=== PATIENT | female | born 1955 | race Caucasian/White ===

== ENCOUNTER 2023-12-31 23:47 | Inpatient (IN) | payer MEDICARE, OTHER, SELFPAY ==
[2023-12-31 21:31] VITALS: BP 129/91
[2023-12-31 21:39] VITALS: BMI 13.2
[2023-12-31 21:40] VITALS: PULSE 2
[2023-12-31 21:54] LABS: % Basophils 0.6 % (0-2); % Eosinophils 2.3 % (0-6); % Immature Granulocytes 0.4 % (0-0.5); % Lymphocytes 10.8 % (20.5-51.1); % Monocytes 6.6 % (1.7-9.3); % Neutrophils 79.3 % (42.2-75.2); Absolute Basophils 0.1 10^3/uL (0-0.2); Absolute Eosinophils 0.3 10^3/uL (0-0.7); Absolute Immature Granulocytes 0.1 10^3/uL (0-0.05); Absolute Lymphocytes 1.5 10^3/uL (1.2-3.4); Absolute Monocytes 0.9 10^3/uL (0.1-0.6); Absolute Neutrophils 11.1 10^3/uL (1.4-6.5); Hematocrit 46.5 % (37.0-47.0); Hemoglobin 14.1 g/dL (12.0-16.0); Mean Corp Hgb Conc. 30.3 g/dL (33.0-37.0); Mean Corpuscular Hgb 28.3 pg (27.0-31.0); Mean Corpuscular Volume 93.4 fL (81.0-99.0); Mean Platelet Volume 9.5 fL (7.4-10.4); Nucleated Red Blood Cells % 0 %; Platelet Count 409 10^3/uL (130-400); Red Blood Cell Count 4.98 10^6/uL (4.20-5.40); Red Cell Dist. Width 12.7 % (11.5-14.5)
[2023-12-31 21:55] LABS: B.E. 14.7 mmol/L; O2 Saturation % 91.6 % (94-98); pH 7.38 (7.35-7.45)
[2023-12-31 21:58] LABS: HCO3 43.2 mmol/L (21-28); PCO2 73 mmHg (32-35); PO2 59 mmHg (83-108)
[2023-12-31 22:00] VITALS: BP 135/80
[2023-12-31 22:06] LABS: Blood Urea Nitrogen 13 mg/dl (7-17); COVID-19 Antigen Negative (Negative); Calcium 11.3 mg/dl (8.4-10.2); Chloride 90 mmol/L (98-107); Estimated Creatinine Clearance 40 ml/min; Glucose 124 mg/dl (70-99); Sodium 140 mmol/L (135-145); eGFR > 60.00
[2023-12-31 22:08] LABS: Urine Albumin Trace (Neg - Trace); Urine Bilirubin Negative (Negative); Urine Character Clear (Clear); Urine Color Yellow; Urine Glucose Negative (Negative); Urine Ketone Negative (Negative); Urine Leukocyte Trace (Negative); Urine Nitrite Negative (Negative); Urine Occult Blood 4+ (Negative); Urine Specific Gravity 1.015 (<1.030); Urine Urobilinogen 1+ (Neg - 1+)
[2023-12-31 22:09] LABS: Lactic Acid 1.9 mmol/L (0.7-2.0)
--- NOTE | 2023-12-31 22:09 | ED.GENMED ---
History of Present Illness
<FRANDY Mcclelland - Last Filed: 01/01/24 05:13>
General
Chief Complaint: Breathing Problem
Source: patient and records
Exam Limitations: clinical condition
Time Seen by Provider: 12/31/23 22:07
History of Present Illness
History of Present Illness:
68 year old female presents from [facility] for evaluation of a breathing problem. Pt is currently in severe respiratory distress thus history taking is limited during this evaluation. Pt has a history of COPD, and last presented to the ED on
06/13/2023 for acute COPD exacerbation and was subsequently admitted to the hospital. Pt reports 2-3 day history of cough leading up to her presentation. Pt presents tonight with fever of 103.6F and SOB. According to EMS documentation pt did not
receive antipyretic medication while at [facility]. Pt is on 4L home O2 chronically.
Past History
<FRANDY Mcclelland - Last Filed: 01/01/24 05:13>
Past History
ED Past Medical History: Cancer (Breast), COPD, Psychiatric and Other (PNA)
ED Past Surgical History: Gynecological (Left lumpectomy) and Other (Right mastoid removed)
Social History
Tobacco: Former smoker
Alcohol: None
Drug: Other
Personal:
Living: other
Employment: Not employed
Family History
Family History: Other
Review of Systems
<FRANDY Mcclelland - Last Filed: 01/01/24 05:13>
Review of Systems
Allergies reviewed?: Yes
Unable to obtain full review of systems at this time due to: due to acuity
Other source history: ambulance crew
Constitutional: Reports fever
Respiratory: Reports trouble breathing
Phy Exam
<FRANDY Mcclelland - Last Filed: 01/01/24 05:13>
General Physical Exam
General Presentation: severe distress
General age: appears stated age
General Skin: cool
General Habitus: cachetic and elderly
General Mental: anxious
Pulmonary Exam
Pulmonary Exam: no crackles, no rhonchi and decreased breath sounds (upper and lower lobes bilaterally )
Respiratory Effort: tachypnea
Oxygen Status: BiPAP
Respirations: rapid
Scores
<Silvana Lora DO - Last Filed: 12/31/23 23:54>
Heart Failure Risk
Heart Failure Risk Score: Not Applicable
Course
<ST KrystinPA - Last Filed: 01/01/24 05:13>
Orders/Labs/Results
Orders:
Orders
12/31/23 21:36
Electrocardiogram (*1) Urgent
Reason for Study: Other
Other Reason for Exam: Possible Sepsis
Cardiac Monitoring- Treatment ONCE
EKG- Treatment ONCE
IV Insert/Care/Rem.- Treatment PRN
Straight cath- Treatment ONCE
12/31/23 21:42
Basic Metabolic Panel Urgent
COVID-19 Antigen Urgent
Source: Nasal Swab
Complete Blood Count/With Diff Urgent
Lactic Acid Q4H
Comment: ON ICE, CANCEL 2ND ORDER IF FIRST LACTIC ACID LEVEL <2
12/31/23 21:49
ABG [Arterial Blood Gas] Urgent
%Oxygen/Room Air: 10L
12/31/23 22:01
Urinalysis Reflex To Culture Urgent
Date Specimen was Collected: 12/31/23
Time Specimen was Collected: 21:36
Urine Microscopic Reflex Cult Urgent
12/31/23 22:09
Cardiac Monitoring- Treatment ONCE
Straight cath- Treatment ONCE
0.9% Sodium Chloride 1000 ml [Nss] 1,000 ml IV BOLUS
12/31/23 22:24
CR Chest Portable - 1 View Urgent
Comment:
Reason For Exam: sob, fevr
Reason Study Needs to be Portable: Unable to Transport
12/31/23 22:25
Albuterol Sulfate [Ventolin Nebules] 7.5 mg INH R NOW STA
Ipratropium Nebs [Atrovent Nebules] 0.5 mg INH R NOW STA
12/31/23 22:30
Blood Culture Urgent
LUCITA Source: Blood/Venous
Specimen Description:
Acetaminophen 10 mg/ml [Ofirmev] 450 mg Empty Viaflex Container 100 ml [Viaflex Empty Container] 0 ml IV ONCE
12/31/23 23:36
Admit/Transfer Patient As Directed
Co-Sign Provider:
Level of Care: Inpatient admission
Assign to:: IMU- Intermediate Care
Physician / Group: Maurizio
Diagnosis: Sepsis
Reason for Hospitalization: BiPAP, IV abx
Expected length of stay greater than two midnights?: Yes
ELOS- Estimated Length of Stay in days: 3
I certify the patient meets the requirements for IP care: Yes
12/31/23 23:37
Code Status As Directed
Resuscitation Status: Full Code
12/31/23 23:42
Piperacillin/Tazo 2.25 Gram [Zosyn] 2.25 grams in 50 ml IV NOW
12/31/23 23:43
Vancomycin 500 mg/100 ml [Vancocin HCl 500 mg] 100 ml IV NOW
01/01/24 00:57
0.9% Sodium Chloride 1000 ml [Nss] 1,000 ml IV 50 mls/hr
Ipratropium/Albuterol Sulfate [Duoneb] 3 ml INH R Q4HPRN PRN
VANCOMYCIN Pharmacy to Dose [VANCOCIN Pharmacy to Dose] 1 each Pharmacy To Prepare [Call Pharmacy To Prepare] 0 ml IV PER PROTOCOL
01/01/24 00:57
Consult Notification Routine
Specialty to Notify: Pulmonary
PULMONARY CONSULT Routine
Consulting Provider: Kathy Carlson
Was physician already notified: No
Reason for consult: COPD, Acute on Chronic Respiratory Failure
Activity As Directed
Activity Level: Bedrest
I&O [Intake/ Output] As Directed
Frequency: q12h
Vital Signs As Directed
Frequency: Per unit guidelines
Weight As Directed
Frequency: Daily
Bipap [RESP] Routine
Patient to use own unit?: No
Inspiratory Pressure (cm H2O): 10
Expiratory Pressure (cm H2O): 5
Oxygen Therapy [O2 Therapy] [RESP] Routine
Titrate/Wean O2 to maintain O2 sat greater than (%): 90
Pulse Ox/cont/shift [RESP] Routine
Quantity: 1
Speech Therapy Eval & Treat Routine
DX Deep Vein Thrombosis Video Routine
01/01/24 01:10
Arterial Blood Gas Urgent
%Oxygen/Room Air: BiPAP
01/01/24 01:31
Acetaminophen [Tylenol] 500 mg PO Q4HPRN PRN
01/01/24 02:00
Dexamethasone Sod Phosphate [Decadron] 6 mg IV Q12H
01/01/24 04:18
Basic Metabolic Panel IN AM
Complete Blood Count/No Diff IN AM
01/01/24 Breakfast
NPO
Allow oral meds: Yes
Allow clear liquids: Sips of Clears
NPO with Ice Chips: Yes
Piperacillin/Tazo 2.25 Gram [Zosyn] 2.25 grams in 50 ml IV Q6H
01/01/24 08:00
Budesonide [Pulmicort] 0.5 mg INH R BID
Ipratropium/Albuterol Sulfate [Duoneb] 3 ml INH R QID
Valproic Acid Syrup [Depakene] 250 mg PO TID
01/01/24 18:00
Enoxaparin Sodium [Lovenox] 30 mg SC QPM
Abnormal Lab Results
12/31/23 12/31/23 12/31/23
21:42 21:49 22:01
WBC 14.0 H 10^3/uL
(4.8-10.8)
MCHC 30.3 L g/dL
(33.0-37.0)
Plt Count 409 H 10^3/uL
(130-400)
Abs Immat Gran (auto) 0.1 H 10^3/uL
(0-0.05)
Absolute Neuts (auto) 11.1 H 10^3/uL
(1.4-6.5)
Absolute Monos (auto) 0.9 H 10^3/uL
(0.1-0.6)
Neutrophils % 79.3 H %
(42.2-75.2)
Lymphocytes % 10.8 L %
(20.5-51.1)
pCO2 73 H* mmHg
(32-35)
pO2 59 L* mmHg
(83-108)
HCO3 43.2 H* mmol/L
(21-28)
ABG O2 Sat (Measured) 91.6 L %
(94-98)
Chloride 90 L mmol/L
(98-107)
Carbon Dioxide 39 H mmol/L
(22-30)
Glucose 124 H mg/dl
(70-99)
Calcium 11.3 H mg/dl
(8.4-10.2)
Ur Occult Blood Reflex 4+ A
(Negative)
Leukocyte Esterase Rfl Trace A
(Negative)
Urine RBC 3-6 A /HPF
(0-2)
Urine Bacteria (Reflex) Few A
(Negative)
12/31/23 21:42
12/31/23 21:42
Vital Signs
Initial and Last Documented VS:
Initial Vital Signs
Temp Pulse Resp BP Pulse Ox
103.6 F H 116 35 129/91 81
12/31/23 21:31 12/31/23 21:31 12/31/23 21:31 12/31/23 21:31 12/31/23 21:31
Last Documented Vital Signs
Temp Pulse Resp BP Pulse Ox
97.8 F 70 33 80/60 96
01/01/24 03:24 01/01/24 04:15 01/01/24 04:15 01/01/24 04:00 01/01/24 03:45
<Silvana Lora, DO - Last Filed: 12/31/23 23:54>
Orders/Labs/Results
Orders:
Orders
12/31/23 21:36
Electrocardiogram (*1) Urgent
Reason for Study: Other
Other Reason for Exam: Possible Sepsis
Cardiac Monitoring- Treatment ONCE
EKG- Treatment ONCE
IV Insert/Care/Rem.- Treatment PRN
Straight cath- Treatment ONCE
12/31/23 21:42
Basic Metabolic Panel Urgent
COVID-19 Antigen Urgent
Source: Nasal Swab
Complete Blood Count/With Diff Urgent
Lactic Acid Q4H
Comment: ON ICE, CANCEL 2ND ORDER IF FIRST LACTIC ACID LEVEL <2
12/31/23 21:49
ABG [Arterial Blood Gas] Urgent
%Oxygen/Room Air: 10L
12/31/23 22:01
Urinalysis Reflex To Culture Urgent
Date Specimen was Collected: 12/31/23
Time Specimen was Collected: 21:36
Urine Microscopic Reflex Cult Urgent
12/31/23 22:09
Cardiac Monitoring- Treatment ONCE
Straight cath- Treatment ONCE
0.9% Sodium Chloride 1000 ml [Nss] 1,000 ml IV BOLUS
12/31/23 22:24
CR Chest Portable - 1 View Urgent
Comment:
Reason For Exam: sob, fevr
Reason Study Needs to be Portable: Unable to Transport
12/31/23 22:25
Albuterol Sulfate [Ventolin Nebules] 7.5 mg INH R NOW STA
Ipratropium Nebs [Atrovent Nebules] 0.5 mg INH R NOW STA
12/31/23 22:30
Blood Culture Urgent
LUCITA Source: Blood/Venous
Specimen Description:
Acetaminophen 10 mg/ml [Ofirmev] 450 mg Empty Viaflex Container 100 ml [Viaflex Empty Container] 0 ml IV ONCE
12/31/23 23:36
Admit/Transfer Patient As Directed
Co-Sign Provider:
Level of Care: Inpatient admission
Assign to:: IMU- Intermediate Care
Physician / Group: Maurizio
Diagnosis: Sepsis
Reason for Hospitalization: BiPAP, IV abx
Expected length of stay greater than two midnights?: Yes
ELOS- Estimated Length of Stay in days: 3
I certify the patient meets the requirements for IP care: Yes
12/31/23 23:37
Code Status As Directed
Resuscitation Status: Full Code
12/31/23 23:42
Piperacillin/Tazo 2.25 Gram [Zosyn] 2.25 grams in 50 ml IV NOW
12/31/23 23:43
Vancomycin 500 mg/100 ml [Vancocin HCl 500 mg] 100 ml IV NOW
01/01/24 00:57
0.9% Sodium Chloride 1000 ml [Nss] 1,000 ml IV 50 mls/hr
Ipratropium/Albuterol Sulfate [Duoneb] 3 ml INH R Q4HPRN PRN
VANCOMYCIN Pharmacy to Dose [VANCOCIN Pharmacy to Dose] 1 each Pharmacy To Prepare [Call Pharmacy To Prepare] 0 ml IV PER PROTOCOL
01/01/24 00:57
Consult Notification Routine
Specialty to Notify: Pulmonary
PULMONARY CONSULT Routine
Consulting Provider: Robyn, Holly
Was physician already notified: No
Reason for consult: COPD, Acute on Chronic Respiratory Failure
Activity As Directed
Activity Level: Bedrest
I&O [Intake/ Output] As Directed
Frequency: q12h
Vital Signs As Directed
Frequency: Per unit guidelines
Weight As Directed
Frequency: Daily
Bipap [RESP] Routine
Patient to use own unit?: No
Inspiratory Pressure (cm H2O): 10
Expiratory Pressure (cm H2O): 5
Oxygen Therapy [O2 Therapy] [RESP] Routine
Titrate/Wean O2 to maintain O2 sat greater than (%): 90
Pulse Ox/cont/shift [RESP] Routine
Quantity: 1
Speech Therapy Eval & Treat Routine
DX Deep Vein Thrombosis Video Routine
01/01/24 01:10
Arterial Blood Gas Urgent
%Oxygen/Room Air: BiPAP
01/01/24 01:31
Acetaminophen [Tylenol] 500 mg PO Q4HPRN PRN
01/01/24 02:00
Dexamethasone Sod Phosphate [Decadron] 6 mg IV Q12H
01/01/24 04:18
Basic Metabolic Panel IN AM
Complete Blood Count/No Diff IN AM
01/01/24 Breakfast
NPO
Allow oral meds: Yes
Allow clear liquids: Sips of Clears
NPO with Ice Chips: Yes
Piperacillin/Tazo 2.25 Gram [Zosyn] 2.25 grams in 50 ml IV Q6H
01/01/24 08:00
Budesonide [Pulmicort] 0.5 mg INH R BID
Ipratropium/Albuterol Sulfate [Duoneb] 3 ml INH R QID
Valproic Acid Syrup [Depakene] 250 mg PO TID
01/01/24 18:00
Enoxaparin Sodium [Lovenox] 30 mg SC QPM
Abnormal Lab Results
12/31/23 12/31/2312/30/24
21:42 21:49 22:01
WBC 14.0 H 10^3/uL
(4.8-10.8)
MCHC 30.3 L g/dL
(33.0-37.0)
Plt Count 409 H 10^3/uL
(130-400)
Abs Immat Gran (auto) 0.1 H 10^3/uL
(0-0.05)
Absolute Neuts (auto) 11.1 H 10^3/uL
(1.4-6.5)
Absolute Monos (auto) 0.9 H 10^3/uL
(0.1-0.6)
Neutrophils % 79.3 H %
(42.2-75.2)
Lymphocytes % 10.8 L %
(20.5-51.1)
pCO2 73 H* mmHg
(32-35)
pO2 59 L* mmHg
(83-108)
HCO3 43.2 H* mmol/L
(21-28)
ABG O2 Sat (Measured) 91.6 L %
(94-98)
Chloride 90 L mmol/L
(98-107)
Carbon Dioxide 39 H mmol/L
(22-30)
Glucose 124 H mg/dl
(70-99)
Calcium 11.3 H mg/dl
(8.4-10.2)
Ur Occult Blood Reflex 4+ A
(Negative)
Leukocyte Esterase Rfl Trace A
(Negative)
Urine RBC 3-6 A /HPF
(0-2)
Urine Bacteria (Reflex) Few A
(Negative)
12/31/23 21:42
12/31/23 21:42
Vital Signs
Initial and Last Documented VS:
Initial Vital Signs
Temp Pulse Resp BP Pulse Ox
103.6 F H 116 35 129/91 81
07/14/24 21:31 12/31/23 21:31 12/31/23 21:31 12/31/23 21:31 12/31/23 21:31
Last Documented Vital Signs
Temp Pulse Resp BP Pulse Ox
97.8 F 70 33 80/60 96
01/01/24 03:24 01/01/24 04:15 01/01/24 04:15 01/01/24 04:00 01/01/24 03:45
<FRANDY Mcclelland - Last Filed: 01/01/24 05:13>
MDM/Problems Addressed
Differential Diagnosis Includes:
COPD exacerbation, COVID-19, PNA, influenza
<FRANDY Mcclelland - Last Filed: 01/01/24 05:13>
*Critical Care Note
comment:
40 minutes at bed side
<Silvana Lora DO - Last Filed: 12/31/23 23:54>
*Radiology
Radiology exam reviewed: preliminary read by ED provider (Significant hyperinflation consistent with COPD. Moderate interstitial fibrosis. No definitive evidence of infiltrate. No pneumothorax.)
*Pulse Oximetry
Patient hypoxic: yes
*EKG
Interpreted by ED Provider?: Yes
Interpretation: abnormal
Rate: tachycardiac
Rhythm: sinus
[place]: normal axis
Interval: normal interval
QRS Pattern: poor R-wave progression
Ischemia: non-specific ST changes
*Deployment Technician Interpretation
Rate: tachycardiac
Interpretation: abnormal
Rhythm: sinus
*Critical Care Note
Total Time (30-74mins, 75-104mins- exclusive of procedures): 40
comment:
40 minutes at bed side
Critical care statement: A total of 40 minutes of critical care time was provided for this patient. This includes management of unstable vital signs, evaluation of the patient at bedside, reviewing the patient's pertinent medical records, discussion
with consultants, review of old EKGs and review of pertinent medical records. This time with separate from time utilized to perform the aforementioned documented procedures
ED Attending Note
<FRANDY Mcclelland - Last Filed: 01/01/24 05:13>
-
Portions of this chart may have been created with voice recognition software.� Occasional wrong word or��sound alike� substitutions may have occurred due to the inherent limitations of voice recognition software.
<Silvana Lora DO - Last Filed: 12/31/23 23:54>
ED Attending Note
Patient seen and examined by attending physician: Yes
I performed the substantive portion of visit, reviewed & personally made and approve the management plan that is documented in note by myself or KENYETTA.: Yes
ED Attending Note:
This is a 68-year-old woman who has end-stage COPD, chronically O2 dependent at 4 L, she has history of bipolar disease with psychosis, failure to thrive, hospitalized here in May to June 27 for treatment of exacerbation of COPD, inability to
care for herself. [facility] since that hospitalization where she has remained.
She presents from [facility] facility with several day history of cough, increasing shortness of breath, severe tonight with significant hypoxia. Noted to be febrile at the halfway but reportedly refusing Tylenol.
She presents significantly tachypneic, febrile at 103 �F, hypoxic on nonrebreather mask with pulse ox reading in the 80s.
Quickly transition to BiPAP 10/5, thus far tolerating BiPAP. She remains moderately tachypneic but able to speak in short sentences.
There has been no report of vomiting.
No report of other associated symptoms. History is markedly limited due to severe respiratory distress.
Prior records reviewed from previous hospitalization June 2023.
Discharge summary notes patient to enter hospice due to end-stage COPD. However halfway records state patient is full code.
Patient is quite thin and frail. 28.7 kg. A loss of 2 kg compared to previous hospitalization in June.
GENERAL: 68-year-old significantly cachectic ill-appearing woman in moderate to severe respiratory distress, moderately fatigued but answering questions appropriately, answering yes/no questions appropriately.
EYE: pupils equal and reactive. anicteric
NECK: Supple, nontender, no meningismus, no significant adenopathy.
ENT: BiPAP mask in place.
CARDIAC: Regular rhythm, tachycardic. no murmur.
LUNGS: Severe respiratory distress with marked tachypnea, respiratory rate of 40, markedly decreased breath sounds throughout.
ABDOMEN: Cachectic, soft, nondistended, without focal tenderness, normoactive BS.
NEUROLOGICAL: Drowsy, oriented x 3, no focal neuro deficits.
SKIN: Hot to touch and dry, mildly pale in color, skin intact. No rash.
MUSCULOSKELETAL: No C/C/E. peripheral pulses are full and equal b/l. No palpable tenderness.
PSYCH: Mildly drowsy. Cooperative.
Patient presents with acute on chronic respiratory failure. Acutely febrile, concern for healthcare associated pneumonia, concern for aspiration pneumonia, sepsis. Other consideration is UTI.
Pulse ox currently 92% on current BiPAP settings.
ABG shows significant respiratory acidosis with CO2 of 70 however bicarb significantly elevated at 43 and overall pH is normal at 7.38. I suspect the CO2 is 70 is not far off from her baseline which I suspect may be around 50-60.
Due to advanced COPD, chronic hyperinflation/air trapping, our goal is to avoid intubation/placing on a ventilator due to significant risk of barotrauma/air trapping.
Labs are pending. Will check portable chest x-ray.
Will check blood culture, urinalysis with reflex to culture.
Will initiate hour-long nebulizer treatment through the BiPAP
Will initiate IV fluid bolus, IV Tylenol for fever and initiate broad-spectrum antibiotics for coverage of potential healthcare associated pneumonia, gram-negative sepsis.
12/31/2023 2300 PM
Chest x-ray shows marked hyperinflation, no definitive evidence of infiltrate.
Patient overall appearing much more comfortable. Tachypnea has resolved, she is resting comfortably. Pulse ox is now 99%
White blood cell count elevated at 14. Normal BUN and creatinine. CO2 elevated at 39 likely related to chronic CO2 retention. Lactic acid is normal at 1.9. Urinalysis is not consistent with UTI.
COVID antigen is negative.
I have attempted to contact the power of criminal defense attorney, patient's brother, cell phone provided goes directly to a voicemail box that is not set up. I then called his office number, reached the answering service however the brother is not on-call only a
service delivery director.
I have relayed this information to the hospitalist.
Discharge Plan
Departure
Patient Disposition: Admit
Date of Disposition: 12/31/23
Time of Disposition: 23:00
Admit to: IMU
Presentation/result/management discussed w/ accepting MD/DO: Hospitalist
Condition: Serious
Covid-19: Negative COVID-19
Discharge Problem:
Acute on chronic respiratory failure with hypoxia and hypercapnia, COPD with acute exacerbation, SIRS (systemic inflammatory response syndrome), Cachexia, Suspect HCA pneumonia
Interventions
Interventions:
*Risk Screen - Suicide Last Done: 12/31/23 21:46
*General Assessment Last Done: 12/31/23 21:46
*Neglect/Abuse Screening Last Done: 12/31/23 21:46
ED- Fall Risk Assessment Last Done: 01/01/24 00:54
*ED COVID-19 Vaccine History Last Done: 12/31/23 21:46
*Nursing Disposition Last Done: 01/01/24 00:54
ED- Cardiac Assessment Last Done: 12/31/23 21:46
ED- Pulmonary Assessment Last Done: 12/31/23 21:46
Discharge Date and Time
Discharge Date/Time: 01/01/24 00:55
[2023-12-31 22:15] LABS: Urine Mucus Few
[2023-12-31 22:16] LABS: Urine Squamous Cell 0-2 /LPF (Few)
[2023-12-31 22:17] LABS: Urine White Cell 0-2 /HPF (0-5)
[2023-12-31 22:20] LABS: Carbon Dioxide 39 mmol/L (22-30)
[2023-12-31 22:21] LABS: Urine Bacteria Few (Negative); Urine Calcium Oxalate Crystals Present; Urine Hyaline Cast 0-2 /LPF (0-2)
[2023-12-31] MEDS: ATROVENT NEBULES 0.5 MG INH (22:31)
[2023-12-31] MEDS: VENTOLIN NEBULES 7.5 MG INH (22:31)
[2023-12-31] MEDS: NSS 1000 IV (22:37)
[2023-12-31 23:00] VITALS: BP 125/82
[2023-12-31] MEDS: OFIRMEV 45 MG IV (23:05)
--- NOTE | 2023-12-31 23:39 | W.PN.UPDATE ---
Update Note
Progress Note Update
Seen and examined and discussed with physician in detail I am in agreement with plan and management mentioned by physician real estate administrative assistant, independent evaluation made by me
Patient sent from the residential for evaluation of shortness of breath and fever, provide limited information as she was on a BiPAP but admits she feels better and she wanted to sleep, according to the nurses she looks and feels better than
earlier, patient advanced COPD and on 4 L oxygen,
Vital signs reviewed
Physical exam:
General: Awake, alert and on BiPAP, cachectic, looks comfortable when she talks, she talks fast single tachypneic,
HEENT: No active discharge, ecchymosis or bruising, moist lips, tongue and mucous membrane.
Eyes: No discharge or red conjunctiva, no nystagmus, pupils are reactive and equal
Neck:Supple, no JVD no bruit no goiter.
Respiratory: Cachectic, holding upper body in flexion, kyphosis normal AP contour and diameter, normal chest wall movement, normal respiratory effort, no respiratory distress,
Lungs: Diminished air entry bilaterally, bilateral wheezing , no rales or crackles
Heart: S1, S2 regular, normal rate, no added sound.
Gastrointestinal: Positive bowel sounds, soft, nontender, no guarding or rigidity or organomegaly
Musculoskeletal: Kyphotic and cachectic,, no chest wall abnormality or tenderness.
Extremities: No pitting edema, good peripheral pulses, good range of motion
Skin: Warm and dry, no ulceration, normal color.
Workup including labs, imaging, EKG and archive reviewed.
Assessment and plan:
Acute sepsis: So far no clear cause but likely respiratory with white cell count more than 14, temperature 100 degree, heart rate 123,
Blood culture
Covered with broad-spectrum antibiotic as started with Vanco and Zosyn in the ER will continue
Shortness of breath: Likely secondary to COPD exacerbation by early pneumonia or bronchitis, doubt pulmonary embolism, she has no chest pain responded to BiPAP
Continue BiPAP for now
ABG showed normal pH shows she has a chronic hypoxic and hypercarbic failure, will get an ABG in an hour and discussed with the night physician and nurse practitioner who cover the IMU to check an ABG and address the need for the BiPAP accordingly.
DuoNeb
IV steroid
Vital sign closely
Low threshold to transfer to ICU
Advanced COPD: As above.
The rest of the assessment and management as per physician real estate administrative assistant.
ER tried to reach out to the brother who is a spinneret person
Was not in service.
The archive and records from the residential are reviewed, according to the record she is a full code
DVT prophylax
Prognosis is poor
--- NOTE | 2023-12-31 23:44 | HPS.HSE ---
Family Physician
-
Family Physician: Juan Luis Hope
Chief Complaint
-
Respiratory Distress
History of Present Illness
Patient is a 68 y/o female past medical history of bipolar disorder, and end stage COPD on chronic oxygen and steroids who presents with respiratory distress. Patient is currently on BiPAP and was non-verbal during my evaluation. Reviewed with ED
provider who reports patient was sent from local halfway with respiratory distress. Upon arrival she was tachypneic and found to be febrile with temp 103F.
Medical History
Past Medical History
Past Medical History: Reports Other
Additional Past Medical History:
Chronic Hypoxic/Hypercarbic Respiratory Failure
End Stage COPD
Pulmonary Cachexia
Bipolar Disorder with Psychotic Feature
Dysphagia
Left Breast Cancer
Past Surgical History: Reports Other
Additional Past Surgical History:
Left Lumpectomy
Social History
Tobacco: Former Smoker
Living: [facility]
Family History
Family History: Unable to Obtain
Allergies / Home Medications
Allergies reflects when Allergies were last updated in [employer].
Home Medications with original date entered in [employer]
Allergy/Medication List:
Allergies
Allergy/AdvReac Type Severity Reaction Status Date / Time
No Known Allergies Allergy Verified 12/31/23 21:41
Home Medications
tiotropium bromide 18 mcg capsule with inhalation device (Spiriva with HandiHaler) 1 cap inhalation R DAILY Lung/Breathing Issues 04/28/23
prednisone 5 mg tablet 5 mg PO DAILY COPD 06/13/23
albuterol 90 mcg-budesonide 80 mcg/actuation HFA aerosol inhaler 2 inh inhalation Q4HPRN PRN shortness of breath 12/31/23
valproic acid (as sodium salt) 250 mg/5 mL (5 mL) oral solution 250 mg PO TID 12/31/23
Review of Systems
-
Unable to obtain full review of systems at this time due to: Patient Non-verbal
Physical Exam
Vital Signs
Vital Signs
Temp Pulse Resp BP Pulse Ox
103.6 F H 123 28 135/80 82
12/31/23 21:31 12/31/23 22:30 12/31/23 22:30 12/31/23 22:00 12/31/23 22:00
Physical Exam
General: Appears Chronically Ill and Cachectic
HEENT: Anicteric and Oxygen (BiPAP)
Respiratory: Decreased Breath Sounds (Poor inspiratory effort)
Cardiac: S1/S2, Regular Rhythm and Tachycardia
GI: Soft and Non Tender
Rectal: Deferred by Provider
Musculoskeletal: No Clubbing, No Cyanosis and No Edema
Skin: Warm and Dry
Neuro: Other (Opens eyes to name, but non-verbal and not interactive during my evaluation)
Laboratory Results
-
12/31/23 21:42
12/31/23 21:42
Laboratory Results
pH 7.38 (7.35-7.45) 12/31/23 21:49
pCO2 73 mmHg (32-35) H* 12/31/23 21:49
pO2 59 mmHg (83-108) L* 12/31/23 21:49
HCO3 43.2 mmol/L (21-28) H* 12/31/23 21:49
Lactic Acid 1.9 mmol/L (0.7-2.0) 12/31/23 21:42
Total Bilirubin Cancelled 12/31/23 21:42
AST Cancelled 12/31/23 21:42
ALT Cancelled 12/31/23 21:42
Alkaline Phosphatase Cancelled 12/31/23 21:42
Data Reviewed
-
Diagnostic Radiology: Image Personally Visualized and interpreted
Lab Data: Labs Reviewed by me
Impression/Plan
-
Acute on Chronic Hypoxic/Hypercarbic Respiratory Failure
-Consult Pulmonary
-Continue BiPAP
-Recheck ABG later today
Sepsis, likely pulmonary source
-Continue broad spectrum antibiotics with vancomycin and Zosyn
End Stage COPD
-Continue Decadron
-Continue Pulmicort Neb
-Continue Duoneb QID and PRN
Bipolar Disorder with Psychotic Features
-Continue Depakote
Dysphagia
-Per [facility] paperwork patient on Advanced Solids
-Will keep NPO until more awake and seen by Speech
Pulmonary Cachexia / Severe Protein Calorie Malnutrition
-Consult Dietary
Hx Left Breast Cancer s/p Lumpectomy
DVT proph: Lovenox
Code Status: Per [facility] Paperwork patient is FULL CODE. ED provider attempted to call patient's brother (POA) and patient's daughter without response
[2024-01-01] VITALS (51 sets, daily range): BP systolic 72–113; BP diastolic 55–80; PULSE 2–68; BMI 13.5
[2024-01-01] MEDS: ZOSYN 50 IV ×4 (00:13→17:37)
[2024-01-01] MEDS: VANCOCIN HCL 500 MG 100 IV (00:19)
--- NOTE | 2024-01-01 01:02 | PTCARENOTE ---
Addendum entered by Sebastian Carl RN 01/01/24 05:53:
Order for IV Levophed gtt received; initiated and titrating per order. RT at bedside to adjust Bipap setting per BOAT ENGINE MECHANIC. Plan to repeat ABG at 0700.
Addendum entered by Sebastian Carl RN 01/01/24 03:03:
BOAT ENGINE MECHANIC Penelope made aware the result of repeat ABG & hypotension, at bedside to assess. Order for 500mL Bolus received. Bipap remains in place. Pt able to wake up but quickly falls back asleep. Daughter, Keisha Perry, updated by BOAT ENGINE MECHANIC. Per Kavitha,
Sterling (brother) is POA.
Original Note:
Patient arrived to room 3355 on Bipap with RN and RT. Pt lethargic but arousable upon tactile stimuli. Able to state her name and the year. Afebrile. Tele applied showing sinus tachycardia. Hypotension present. IV abx finishing up at this time.
Repeat ABG being drawn now by RT.
Stage one to sacrum. Heels are blanchable red and boggy; floated on pillow. pt cachectic. Purewick placed. Bed alarm set for safety. Call lanier within reach. RN sitting outside closest nurses station.
[2024-01-01 01:15] LABS: B.E. 7.8 mmol/L; HCO3 36.4 mmol/L (21-28); O2 Saturation % 96.8 % (94-98); PO2 76 mmHg (83-108)
[2024-01-01 01:17] LABS: PCO2 74 mmHg (32-35)
[2024-01-01] MEDS: NSS 1000 IV ×2 (01:52→15:26)
[2024-01-01] MEDS: NSS 500 IV (01:53)
[2024-01-01] MEDS: DECADRON 6 MG IV ×2 (01:59→13:01)
--- NOTE | 2024-01-01 02:12 | W.PN.UPDATE ---
Update Note
Progress Note Update
Patient minimally responsive at arrival to floor. Repeat ABG with no significant changes, and hypotension. Call received from patients daughter, Keisha Perry, attempted to update daughter on patients current status. Keisha Perry presents manic on the
phone, talks rapidly without breaks. Keisha Perry repeatedly questions if her Mother is sick from a 'cold,' or the 'flu,' verse 'end-stage.' She quickly requests prognosis and how long patient will leave then changes conversation to question provider
about her own psychiatric diagnosis. Attempts to reorient/refocus daughter were not successful. During long conversation daughter, Keisha Perry mentions that her Uncle, Richard Herrera, is POA for her mother. Keisha Perry provided number to [facility],
company her Uncle owns , additional contact number located from previous admission . Call to office and on-call service answered, left message for Mr. Herrera to return call to hospital as it is believe a patient he is
POA for is here (no detailed patient information, including name was provided). Call to noted contact number form previous admission rang without answer and no voicemail setup.
Plan:
#Hypotension
- NSS IVF bolus (ineffective)
- Levophed gtt initiated to maintain SBP >90
#Acute on Chronic Hypoxic/Hypercarbic Respiratory Failure
- no significant changed is ABG pH 7.3, CO2 74, O2 76
- RT titrating BiPap settings
[2024-01-01 04:32] LABS: Hematocrit 32.8 % (37.0-47.0); Mean Corp Hgb Conc. 31.1 g/dL (33.0-37.0); Mean Corpuscular Hgb 28.3 pg (27.0-31.0); Mean Corpuscular Volume 91.1 fL (81.0-99.0); Mean Platelet Volume 9.9 fL (7.4-10.4); Platelet Count 231 10^3/uL (130-400); Red Cell Dist. Width 12.8 % (11.5-14.5)
[2024-01-01 04:51] LABS: Hemoglobin 10.2 g/dL (12.0-16.0)
[2024-01-01 04:56] LABS: Blood Urea Nitrogen 13 mg/dl (7-17); Calcium 9.3 mg/dl (8.4-10.2); Carbon Dioxide 33 mmol/L (22-30); Chloride 100 mmol/L (98-107); Estimated Creatinine Clearance 34 ml/min; Glucose 134 mg/dl (70-99); Potassium 4.4 mmol/L (3.5-5.1); Sodium 139 mmol/L (135-145); eGFR > 60.00
--- NOTE | 2024-01-01 05:10 | W.PN.UPDATE ---
Update Note
Progress Note Update
The patient was discussed with night PRIMARY CARE MD, covering the IMU
Patient is hypotensive and received 1 liter fluid bolus
Repeat ABG pH 7.3, CO2 74, O2 76
-RT continues to titrate BIPAP overnight,
-will hold of on ETT as this would likely bottom out her blood pressure, continue to titrate BIPAP
-MAP is currently holding at > 65 post fluid bolus and will continue to monitor closely for need for pressors, low threshold to start pressors
-Patient's brother is the patient's POA, and night PRIMARY CARE MD has been trying to reach brother without success so far.
[2024-01-01] MEDS: LEVOPHED 250 IV (05:36)
[2024-01-01] MEDS: PULMICORT 0.5 MG INH ×2 (07:43→19:39)
[2024-01-01] MEDS: DUONEB 3 ML INH ×3 (07:43→19:39)
[2024-01-01 07:47] LABS: B.E. 5.5 mmol/L; HCO3 31.1 mmol/L (21-28); PCO2 49 mmHg (32-35); PO2 93 mmHg (83-108); pH 7.41 (7.35-7.45)
--- NOTE | 2024-01-01 08:01 | PHA.VAN.IN ---
Addendum entered and electronically signed by Estefany Corrales Daryn 01/01/24 11:20:
Laboratory Tests
01/01/24
10:38
Random Vancomycin 5.2
Level drawn ~10.5H after initial dose of 500mg (~9.5H after infusion ended)
Patient with low BMI and unlikely to follow population PK
Give additional 1000mg x1 today given low level
Continue to follow levels as difficult to predict accumulation and clearance
Random 01/01 0600
Original Note:
Assessment
- Assessment
Renal Function: Appears similar to baseline
Concomitant Antimicrobials: piperacillin/tazobactam
Plan
- Plan
Initial / Loading Dose: Vanc 500mg - 12/31 00:19
Maintenance Regimen: dosing by level
Random today (12/31) at 1000 - suspect patient may require additional dosing but due to low TBW will obtain level to confirm (patient unlikely to follow population PK)
Pharmacokinetics Vancomycin I
- -
Patient Age: 68
Patient Sex: Female
Vancomycin Day #: 1
Indication: Pulmonary/Respiratory
Requesting Provider: Janine Ramos
Pertinent Antimicrobial Allergies:
NKDA
Height / Weight:
Height 4 ft 10 in
Actual Weight 29.2 kg
IBW in k.9-45.5
Pertinent Past Medical History: BMI ~13.5, end-stage COPD (home O2, prednisone)
- Vital Signs / Lab Results
Temp Pulse Resp BP Pulse Ox
97.8 F 64 24 97/67 96
01/01/24 03:24 01/01/24 07:50 01/01/24 07:50 01/01/24 06:30 01/01/24 07:50
Lab Results - Hematology
12/31/23 01/01/24
21:42 04:18
WBC 14.0 H 11.0 H
Lab Results - Chemistry
12/31/23 01/01/24
21:42 04:18
BUN 13 13
Creatinine 0.6 0.7
Estimated Creat Clear 40 34
Albumin Cancelled
12/31/23 01/01/24
21:42 01:45
Lactic Acid 1.9 Cancelled
Lab Results - Urine
12/31/23
22:01
Urine Nitrite (Reflex) Negative
Leukocyte Esterase Rfl Trace A
Urine WBC (Reflex) 0-2
Ur Squamous Epith Cells 0-2
Urine Bacteria (Reflex) Few A
--- NOTE | 2024-01-01 09:33 | CON.INTV ---
Consultation
Consultation Request
Date/Time Consultation Requested: 01/01/2024
Date/Time Consultation Performed: 01/01/2024
Requesting Provider: Dr. Markham
Performing Provider: Dr. Magdaleno Preston
Reason for Consultation: Acute exacerbation of COPD/bronchitis
Medical History
-
History of Present Illness:
68-year-old woman with history of bipolar disorder, advanced COPD on chronic oxygen, chronic steroid use presented to the emergency room with respiratory distress. Patient necessitated noninvasive mechanical ventilation due to increased work of
breathing. Unable to provide history on admission.
She was also found to be febrile with leukocytosis.
Patient does have chronic of chronic hypercapnic respiratory failure and pulmonary cachexia.
Patient found to be hypotensive despite IV fluid resuscitation. Required low-dose Levophed.
We were consulted for evaluation of respiratory issues.
Past Medical History
Past Medical History: Other (See assessment and plan section)
Social History
Tobacco: Former Smoker
Alcohol: None
Drug: None
Living: Alf
Family History
Family History: Unable to Obtain
Allergies / Home Medications
Allergies
Allergy/AdvReac Type Severity Reaction Status Date / Time
No Known Allergies Allergy Verified 12/31/23 21:41
Home Medications
�Medication �Instructions �Recorded �Confirmed �Last Taken �Type
tiotropium bromide 18 mcg capsule 1 cap inhalation R DAILY 04/28/23 12/31/23 Unknown History
with inhalation device (Spiriva Lung/Breathing Issues
with HandiHaler)
prednisone 5 mg tablet 5 mg PO DAILY COPD 06/13/23 12/31/23 Unknown History
albuterol 90 mcg-budesonide 80 2 inh inhalation Q4HPRN PRN 12/31/23 12/31/23 Unknown History
mcg/actuation HFA aerosol inhaler shortness of breath
valproic acid (as sodium salt) 250 250 mg PO TID Mental Health/Anxiety 12/31/23 12/31/23 Unknown History
mg/5 mL (5 mL) oral solution
Review of Systems
-
Unable to Obtain full review of systems at this time due to: Acuity
Vitals / Labs / Diagnostic Testing
Vital Signs
Temp Pulse Resp BP Pulse Ox
97.5 F 64 24 97/67 96
01/01/24 07:48 01/01/24 07:50 01/01/24 07:50 01/01/24 06:30 01/01/24 07:50
Lab Data
01/01/24 04:18
01/01/24 04:18
Laboratory Results
12/31/23 01/01/24 01/01/24
21:49 01:10 07:39
pH 7.38 7.30 L 7.41
pCO2 73 H* 74 H* 49 H
pO2 59 L* 76 L 93
HCO3 43.2 H* 36.4 H 31.1 H
O2 Delivery Level
Diagnostic Testing:
Physical Exam
-
HEENT: Normocephalic and Other (Cachectic)
Cardiovascular: S1/S2
Respiratory: Wheeze
GI: Soft and Non Distended
Neurology: Awake and Alert
Skin: Warm
Assessment
-
68-year-old woman who has history of advanced COPD, on 4 L of oxygen supplementation, low-dose prednisone, follows up with Dr. Peoples in the outpatient setting. Has history of bipolar disorder and longterm resident. Admitted on 12/31/2023 with
increased work of breathing/respiratory distress. Found to be acute on chronically hypercapnic. Treated for acute exacerbation of COPD. Also found to be febrile and hypotensive requiring low-dose vasopressors. Pulmonary was consulted for
evaluation of respiratory issues
Acute on chronic hypercapnic and hypoxemic respiratory failure-required noninvasive mechanical ventilation/BiPAP.
AB.3/74/76
Acute exacerbation COPD
Chest x-ray: 01/01/2024-hyperinflation. No evidence for pneumonia
Sepsis : Leukocytosis/fevers
unclear source:
Anemia
Conditions present prior admission:
History of severe COPD
Usually on prednisone 5 mg/tiotropium/oxygen supplementation of 4 L
Oxygen dependent 4L/steroid-dependent
Baseline FEV1 0.47/23% in 2021
Last time seen in our office by Dr. Peoples 10/2021-multiple missed appointments since then. Primary care managing mostly.
Multiple hospital stays at [facility]
Pulm cachexia
Hypercalcemia
Hypertension/hyperlipidemia
Right upper lobe nodule, stable
Osteoporosis
Bipolar disorder/anxiety: acute psychosis event leading to brief ER DH adm early May 2023 and transfer to acute psych facility from 05-20 to . Also adm Apr 2023 for FTT and untreated bipolar disorder with component of paranoia and delusions,
seen by psychiatry but refused psych meds.
Assessment and plan:
Agree with current management for now.
Remains on BiPAP, more alert. Following commands. Still slightly tachypneic.
ABG improved compensated now: 7.41/49/93 on 01/02/2024 at 7:39 AM.
Decreased breath sounds bilaterally, no wheezing.
Hold inhalers while on acute exacerbation.
Continue Pulmicort/DuoNebs [id number]
IV dexamethasone-hold low-dose prednisone while on IV steroids
Continue BiPAP as needed and at bedtime while in the hospital. Unlikely to benefit from long-term noninvasive mechanical ventilation due to poor compliance/bipolar disorder etc.
Will attempt to take a break from BiPAP as ABG has improved.
Avoid sedatives if possible
-
Sepsis: Unclear source
Hypotensive, requiring low-dose Levophed-wean down as able. Currently on 5 mics per minute. Hopefully can wean off.
Status post IV fluid resuscitation. Watch respiratory status closely.
Lactic acid not elevated
Renal function normal
Follow fever curve
Could be pulmonary: ?Acute tracheobronchitis.
Currently on pip-tazo and vancomycin.
UA unremarkable
Negative COVID
MRSA screening pending
Obtain a sputum culture if possible
Obtain blood cultures
-
Bipolar disorder: Management per primary team.
[facility] records reviewed, last time seen in our office for COPD management was October 2021. Multiple missed appointments. She was referred to primary care for further care of her COPD.
She quit smoking 20 years ago, not eligible for lung cancer screening.
-
Monitor blood sugars particularly on IV corticosteroids.
-
Will keep n.p.o. for now-aspiration precaution.
DVT prophylaxis-Lovenox
-
Will follow
-
Currently listed as full code.
Family discussion noted. Prognosis is very poor.
Left a message at patient's brother office number, administrative secretary will reach out to him and give the message. Hopefully can discuss CODE STATUS.
-
If there is escalation of vasopressor requirement may need to be transferred to the ICU and obtain a PICC line.
-
Imaging and testing reviewed:
-
Echocardiogram 01/04/2022: Small left ventricular size, mild LVH. Trace MR.
No significant valvular abnormalities. No significant pulmonary hypertension. Normal RV function.
-
CT chest 05/01/2023: Hyperinflated lungs. Significant heterogeneous emphysema.
Stable pulmonary nodules. Coronary artery calcifications.
-
Chest x-ray 12/31/2023: Reviewed showed hyperinflation without evidence of pneumonia.
[2024-01-01 11:10] LABS: Vancomycin Random 5.2 ug/ml
--- NOTE | 2024-01-01 11:12 | W.PN.UPDATE ---
Update Note
Progress Note Update
I discussed with her son Mr. Herrera over the phone today regarding patient's poor prognosis. He agreed and we have transition to DNR.
He would not want any heroic interventions.
I discussed with him considering palliative care and hospice after discharge or even during the hospital stay if patient deteriorates further. He is willing to consider that.
[2024-01-01] MEDS: VANCOCIN 200 IV (11:41)
[2024-01-01] MEDS: DEPAKENE 250 MG PO ×3 (12:17→20:28)
--- NOTE | 2024-01-01 13:20 | PTOTSP ---
Speech Language Pathology
Pt seen for clinical bedside swallow evaluation. Pt consistently talking in extremely low vocal intensity with decreased intelligibility for this reason. P.O. trials of puree and thin liquids provided. Pt refused cracker, stating it was 'stale.'
Also refused DRIVER RETRAINING INSTRUCTOR putting pieces in applesauce, as she had this would make her 'choke.' Adequate oral phase with puree and thin liquids with no oral residue. No overt signs of aspiration.
Recommend:
(1) IDDSI Level 4 (Puree) and Thin Liquids
(2) Aspiration precautions: sit upright, slow rate, single sips
(3) Meds as tolerated
(4) DRIVER RETRAINING INSTRUCTOR to continue to follow
[2024-01-01] MEDS: DUONEB INH (15:33)
--- NOTE | 2024-01-01 16:36 | W.PN.HOSP.TC ---
Today's Communication/Plan
-
cont abx
f/u cultures
iv steroids
duonebs
Assessment / Plan
Assessment / Plan
Physical Exam
General: Appears Chronically Ill and Cachectic
HEENT: Anicteric and Oxygen (BiPAP)
Respiratory: Decreased Breath Sounds (Poor inspiratory effort)
Cardiac: S1/S2, Regular Rhythm and Tachycardia
GI: Soft and Non Tender
Rectal: Deferred by Provider
Musculoskeletal: No Clubbing, No Cyanosis and No Edema
Skin: Warm and Dry
Acute on Chronic Hypoxic/Hypercarbic Respiratory Failure
-Consult Pulmonary
-off bipap
-Recheck ABG later today
-duonebs prn
-broad spectrum abx
-iv steroids
-bipap naps/night
Septic Shock, likely pulmonary source
-Continue broad spectrum antibiotics with vancomycin and Zosyn
-Off levo this afternoon
-f/u cultures
-maintain map >65
End Stage COPD
-Continue Decadron
-Continue Pulmicort Neb
-Continue Duoneb QID and PRN
-palliative consult
Bipolar Disorder with Psychotic Features
-Continue Depakote
Dysphagia
-Per [facility] paperwork patient on Advanced Solids
-Pureed
Pulmonary Cachexia / Severe Protein Calorie Malnutrition
Hx Left Breast Cancer s/p Lumpectomy
DVT proph: Lovenox
Code Status: DNR; hospice appropriate - cm consulted
Total time spent on today's encounter was 50 minutes which included time spent in counseling the patient/family regarding diagnosis and treatment plan as listed above, goals of care, and symptom management. Case was discussed with nursing staff,
specialists, and care coordinators/case management. All labs and imaging personally reviewed by me. Remainder the time spent in detailed review of previous records, lab data, imaging, and other medical provider documentation.
Anticipated Discharge: > 48 hours
Subjective/Interval History
-
Date of Service: January 01, 2024
Off BiPAP
Objective Data
-
Labs:
Laboratory Results
01/01/24 01/01/24
04:18 07:39
WBC 11.0 H
Hgb 10.2 L D
Hct 32.8 L
Plt Count 231 D
HCO3 31.1 H
Sodium 139
Potassium 4.4
Chloride 100
Carbon Dioxide 33 H
BUN 13
Creatinine 0.7
Glucose 134 H
Calcium 9.3 D
Vital Signs:
Vital Signs
Temp Pulse Resp BP Pulse Ox
97.1 F 81 34 99/71 92
01/01/24 11:10 01/01/24 15:30 01/01/24 15:30 01/01/24 14:30 01/01/24 15:15
I&O
12/31/23 01/01/24 01/02/24
06:59 06:59 06:59
Intake Total 550 / 550
Balance 550 / 550
Review of Systems
-
History Source: Patient
All other systems: Not reviewed unless documented
Data Reviewed
-
Diagnostic Radiology: Image personally visualized and interpreted and Report Reviewed by me
Labs: Labs Reviewed by me
--- NOTE | 2024-01-01 16:58 | PTCARENOTE ---
Addendum entered by Ravi Canchola RN 01/01/24 17:45:
Patient adamantly refused lovenox injection despite education about it's use.
Original Note:
Patient oriented to self and place, talks in such a low volume that she is often unintelligible. Patient rambles continuously, also often paranoid of medications provided. NSR on monitor. Patient has been weaned off of levo gtt since 1400 today.
VSS. Weaned to 2L NC, sats 94%. Patient with a moist cough, productive with ernst sputum. Attempting to get patient to provide a sample for lab. Patient ordered pureed with thins diet after speech eval, patient states very hungry but won't eat the
food, only drank liquids. DNR band placed, LUE limb alert band placed for prior lumpectomy and IV removed from that arm. Brother/POA visited today and updated, daughter Keisha updated by phone. Continuing to closely monitor patient.
--- NOTE | 2024-01-01 17:09 | CM ---
Patient from [facility] with Hx Bipolar Disorder with Psychotic Features with Dx Dx Acute on Chronic Hypoxic/Hypercarbic Respiratory Failure, Septic Shock, end stage COPD. O2 1L. Receiving Decadron IV, IV Abx, IVF. ST Eval; dysphagia diet.
Spoke with [facility]; the patient resides there in LTC on an MA bed hold. She is confused at baseline, is able to ambulate on her own. The patient is not currently receiving PT. The facility has contact with her brother Richard, who
is POA.
Spoke with nurse Ravi; patient off BiPAP and off Levophed today. The patient's brother is asking to speak with CM about palliative care vs hospice---> message to Dr Raymond family may be interested in hospice.
Phone calls to Richard, patient's brother; no answer on cell phone and no voicemail. Called his work # and left message.
Plan follow up with patient's brother for d/c planning.
--- NOTE | 2024-01-01 20:30 | PTCARENOTE ---
Resumed care of pt this evening. Received pt A&Ox1 to self, pt able to move all 4 extremities, and responds to verbal and tactile stimuli. Pt often speaks under her breath and is very difficult to understand. Pt is NSR on tele monitor, has no edema
and weak but palpable pedal pulses. Pt on 2L of O2 satting at 96% pulse ox. On auscultation pt lungs are coarse and diminished TO. Respirations are shallow.
[2024-01-02] VITALS (11 sets, daily range): BP systolic 83–109; BP diastolic 57–83; BMI 13.7; BMI 13.8
[2024-01-02] MEDS: ZOSYN 50 IV ×4 (01:24→17:19)
[2024-01-02] MEDS: DECADRON 6 MG IV (01:25)
[2024-01-02 05:14] LABS: Hematocrit 37.2 % (37.0-47.0); Hemoglobin 11.7 g/dL (12.0-16.0); Mean Corp Hgb Conc. 31.5 g/dL (33.0-37.0); Mean Corpuscular Hgb 28.2 pg (27.0-31.0); Mean Corpuscular Volume 89.6 fL (81.0-99.0); Mean Platelet Volume 9.9 fL (7.4-10.4); Platelet Count 320 10^3/uL (130-400); Red Blood Cell Count 4.15 10^6/uL (4.20-5.40); Red Cell Dist. Width 13.2 % (11.5-14.5); White Blood Cell Count 24.8 10^3/uL (4.8-10.8)
[2024-01-02 06:06] LABS: ALT (SGPT) 14 U/L (0-35); AST (SGOT) 67 U/L (14-36); Albumin 3.8 g/dl (3.5-5.0); Alkaline Phosphatase 77 U/L (38-126); Blood Urea Nitrogen 11 mg/dl (7-17); Calcium 10.5 mg/dl (8.4-10.2); Carbon Dioxide 33 mmol/L (22-30); Chloride 104 mmol/L (98-107); Estimated Creatinine Clearance 41 ml/min; Glucose 109 mg/dl (70-99); Magnesium 2.1 mg/dl (1.6-2.3); Potassium 3.6 mmol/L (3.5-5.1); Sodium 146 mmol/L (135-145); Total Bilirubin 0.5 mg/dl (0.2-1.3); Total Protein 6.4 g/dl (6.3-8.2); Vancomycin Random 13.8 ug/ml; eGFR > 60.00
[2024-01-02] MEDS: DUONEB INH ×4 (07:25→20:21)
[2024-01-02] MEDS: PULMICORT INH ×2 (07:25→20:22)
--- NOTE | 2024-01-02 08:11 | W.PN.PUL3 ---
Addendum entered and electronically signed by Leslye Burgess MD 01/02/24 16:54:
Plans for hospice noted. We will sign off. Please call with questions
Original Note:
Today's Communication / Plan
-
Would recommend decreasing steroids
May require stress dose if hypotension continues to be an issue
Continue with nebulized therapy
Remains on antibiotics, aspiration precautions
BiPAP at night
Assessment
-
68-year-old woman who has history of advanced COPD, on 4 L of oxygen supplementation, low-dose prednisone, follows up with Dr. Peoples in the outpatient setting. Has history of bipolar disorder and shelter resident. Admitted on 12/31/2023 with
increased work of breathing/respiratory distress. Found to be acute on chronically hypercapnic. Treated for acute exacerbation of COPD. Also found to be febrile and hypotensive requiring low-dose vasopressors. Pulmonary was consulted for
evaluation of respiratory issues
Acute on chronic hypercapnic and hypoxemic respiratory failure-required noninvasive mechanical ventilation/BiPAP.
AB./
Acute exacerbation COPD
Chest x-ray: 01/01/2024-hyperinflation. No evidence for pneumonia
Sepsis : Leukocytosis/fevers
unclear source:
Anemia
Conditions present prior admission:
History of severe COPD
Usually on prednisone 5 mg/tiotropium/oxygen supplementation of 4 L
Oxygen dependent 4L/steroid-dependent
Baseline FEV1 0.47/23% in 2021
Last time seen in our office by Dr. Peoples 10/2021-multiple missed appointments since then. Primary care managing mostly.
Multiple hospital stays at [facility]
Pulm cachexia
Hypercalcemia
Hypertension/hyperlipidemia
Right upper lobe nodule, stable
Osteoporosis
Bipolar disorder/anxiety: acute psychosis event leading to brief ER DH adm early May 2023 and transfer to acute psych facility from 05-20 to . Also adm Apr 2023 for FTT and untreated bipolar disorder with component of paranoia and delusions,
seen by psychiatry but refused psych meds.
Assessment and plan:
Patient appears to be comfortable, eating breakfast. However she appears to be confused, accusing me of hurting her finger with her pulse oximeter, accusing staff of being disrespectful to her and her sister
She thinks she is at [facility]
When attempted to reorient, she accused me of being disrespectful
Moving forward
Agree with current management for now.
No evidence of tachypnea at this time, eating breakfast
ABG improved compensated now: 7.41/93 on 01/02/2024 at 7:39 AM.
Decreased breath sounds bilaterally, no wheezing.
Hold inhalers while on acute exacerbation.
Continue Pulmicort/DuoNebs [id number]
IV dexamethasone-hold low-dose prednisone while on IV steroids
Continue BiPAP as needed and at bedtime while in the hospital. Unlikely to benefit from long-term noninvasive mechanical ventilation due to poor compliance/bipolar disorder etc.
Will attempt to take a break from BiPAP as ABG has improved.
Avoid sedatives if possible
DNR status noted
We will plan to continue BiPAP nightly as needed
-
Sepsis: Unclear source
Hypotensive, requiring low-dose Levophed-wean down as able. Currently on 5 mics per minute. Hopefully can wean off.
Status post IV fluid resuscitation. Watch respiratory status closely.
Lactic acid not elevated
Renal function normal
Follow fever curve
Could be pulmonary: ?Acute tracheobronchitis.
Currently on pip-tazo and vancomycin.
UA unremarkable
Negative COVID
MRSA screening pending
Follow cultures
-
Bipolar disorder: Management per primary team.
[facility] records reviewed, last time seen in our office for COPD management was October 2021. Multiple missed appointments. She was referred to primary care for further care of her COPD.
She quit smoking 20 years ago, not eligible for lung cancer screening.
-
Monitor blood sugars particularly on IV corticosteroids.
If marginal blood pressure continues, may require stress dose steroids
Otherwise, would recommend decreasing steroids.
-
Tolerating p.o. Aspiration precautions
DVT prophylaxis-Lovenox
-
DNR status noted per conversation with Dr. Liriano and family
Family discussion noted. Prognosis is very poor.
Imaging and testing reviewed:
-
Echocardiogram 01/04/2022: Small left ventricular size, mild LVH. Trace MR.
No significant valvular abnormalities. No significant pulmonary hypertension. Normal RV function.
-
CT chest 05/01/2023: Hyperinflated lungs. Significant heterogeneous emphysema.
Stable pulmonary nodules. Coronary artery calcifications.
-
Chest x-ray 12/31/2023: Reviewed showed hyperinflation without evidence of pneumonia.
Subjective Data
-
Date of Service:
Date of Service: January 02, 2024
Subjective:
Patient is comfortable eating breakfast. She appears to be confused, asking about Effie and stating that Effie is disrespectful. Also accusing me of harming her finger with her pulse oximeter
Objective Data
Data Reviewed
Vital Signs / I&O / Oxygen:
Vital Signs
Temp Pulse Resp BP Pulse Ox
97.9 F 87 36 91/65 98
01/02/24 03:40 01/02/24 04:30 01/02/24 04:30 01/02/24 04:04 01/01/24 20:30
Intake and Output
01/01/24 01/02/24 01/03/24
06:59 06:59 06:59
Intake Total 550 / 550
Output Total 650 / 650
Balance 550 / 250 -650 / -650
SaO2 98
Nasal Cannula flow liters per 2
minute
Physical Exam
General: Comfortable and Other (Cachectic)
Cardiovascular: S1-S2, Regular Rhythm, Murmur (n) and Rub (n)
Respiratory: Wheeze (n), Crackles (n) and Rhonchi (n)
GI: Soft, Non Distended and Non Tender
Neurology: Awake, Alert and Other (Disoriented, dementia )
Labs/Micro/Reports
Lab Data
01/02/24 04:50
01/02/24 04:50
Microbiology
12/31/23 22:30 Blood/Venous Blood Culture - Preliminary
Positive culture in progress
12/31/23 22:30 Blood/Venous Gram Stain - Preliminary
01/01/24 10:38 Nasal Swab Influenza Types A & B (BRUCE) - Final
Negative for Influenza A & B, NAAT
Negative results must be combined with clinical observations
and patient history.
Nucleic Acid Amplification test (NAAT)performed on the
[employer] platform.
[2024-01-02] MEDS: DEPAKENE 250 MG PO ×2 (08:23→16:32)
--- NOTE | 2024-01-02 08:37 | PHA.VAN.FU ---
Vancomycin Assessment / Plan
- Assessment
Renal Function: Stable
WBC's are: Trending Up
In the past 24 hrs, patient has been: Afebrile
Concomitant Antimicrobials: piperacillin/tazobactam
- Assessment - Therapeutic Drug Monitoring
Random Level: 13.8 - drawn ~17H after previous dose of 1000mg
received total of 1500mg yesterday
- Dosing Plan
Dosing by Level: Re-dose today (Vanc 750mg)
Dosing Comments: patient unlikely to follow population PK with BMI
- Monitoring Plan
Random Level: 01/02 0600
- Follow Up
Pharmacy will continue to follow.
Vancomycin Follow UP
- -
Patient Age: 68
Patient Sex: Female
Vancomycin Day #: 2
Indication: Pulmonary/Respiratory
Requesting Provider: Janine Ramos
Pertinent Antimicrobial Allergies:
NKDA
Height / Weight:
Height 4 ft 10 in
Actual Weight 29.9 kg
IBW in k.9-45.5
Pertinent Past Medical History: BMI ~13.5, end-stage COPD (home O2, prednisone)
- Vital Signs / Lab Results
Temp Pulse Resp BP Pulse Ox
97.9 F 87 36 91/65 98
01/02/24 03:40 01/02/24 04:30 01/02/24 04:30 01/02/24 04:04 01/01/24 20:30
Lab Results - Hematology
12/31/23 01/01/24 01/02/24
21:42 04:18 04:50
WBC 14.0 H 11.0 H 24.8 H
Lab Results - Chemistry
12/31/23 01/01/24 01/02/24
21:42 04:18 04:50
BUN 13 13 11
Creatinine 0.6 0.7 0.6
Estimated Creat Clear 40 34 41
Albumin Cancelled 3.8
12/31/23 01/01/24
21:42 01:45
Lactic Acid 1.9 Cancelled
Microbiology Results
01/01/24 04:27 MRSA Screen - Final
Nose No Methicillin Resistant Staphylococcus aureus isolated.
12/31/23 22:30 Blood Culture - Preliminary
Blood/Venous Positive culture in progress
Gram Stain - Preliminary
01/01/24 10:38 Influenza Types A & B (BRUCE) - Final
Nasal Swab Negative for Influenza A & B, NAAT
Negative results must be combined with clinical observations
and patient history.
Nucleic Acid Amplification test (NAAT)performed on the
[employer] platform.
Therapeutic Drug Monitoring
Random Vancomycin 13.8 ug/ml 01/02/24 04:50
--- NOTE | 2024-01-02 09:45 | CM ---
Addendum entered by Vicky Cole RN 01/02/24 12:53:
CM Consult: Hospice
Messages with Beth, Hospice; patient's brother/POA Noah agrees with hospice to begin at SNF tomorrow.
Spoke with Noah again, he agrees with the patient returning to [facility] tomorrow with Hospice. IMM completed and copy sent to his email at [email or web address]. Noah doesn't want her 2 daughters informed of hospice, as he feels they do not
have the mental capacity to understand or handle it with their mental health issues- CM told him info would be relayed to DM, nurse, hospice nurse.
Spoke with Hannah, s [facility]; they are able to accept the patient back tomorrow with Hospice. The ph for report [phone], .
Ambulance transport requested for noon tomorrow - ambulance forms on chart.
[facility] DNR form on chart for MD signature.
Plan return to [facility] tomorrow with Hospice by ambulance- noon transport request time.
Original Note:
Patient from [facility] with Hx Bipolar Disorder with Psychotic Features with Dx Dx Acute on Chronic Hypoxic/Hypercarbic Respiratory Failure, Septic Shock, end stage COPD.
Received callback from patient's brother Noah Herrera (ph [phone]); he wished to discuss hospice- explained hospice philosophy and benefits. He would like to speak with Hospice nurse---> Sana Raymond and Jenifer made aware.
Plan await order for hospice.
--- NOTE | 2024-01-02 10:05 | PTCARENOTE ---
Assumed care of pt at 0645 from warehouse worker 2nd shift RN. AAOx3 but forgetful and confused at times. Pt frequently mumbles under breath and hard to understand at times. NSR on solar sales manager. HRs 80-90s. SaO2 96% on 5L nasal cannula. Will attempt to wean O2.
VSS. Preliminary blood cultures positive. Will start IV vanco today. Repeat blood cultures ordered. Pt resting in bed, call lanier within reach. Assessment documented.
--- NOTE | 2024-01-02 10:13 | PTCARENOTE ---
Pt refusing to be stuck for blood cultures at this time. MD aware. Will reattempt later today.
[2024-01-02] MEDS: VANCOCIN 150 IV (10:16)
--- NOTE | 2024-01-02 12:09 | HOSPNOTE ---
Called and spoke to patients brother Noah. I explained hospice and he is in agreement. I will be sending consents via fax today. We are prepared to admit patient tomorrow at [facility].
--- NOTE | 2024-01-02 12:41 | PN.CDI ---
CDI
- -
CDI:
Physician Documentation Request
Admit Date: 12/31/23 23:47
Dear Doctor Mandi,
Please review the following and provide your response in the progress notes.
Clinical Indicators:
Pt admitted with Sepsis of unclear Etiology with COPD exacerbation and possible Acute bronchitis/ Acute on Chronic Hypoxic/Hypercapnic Respiratory Failure
Documented per H&P,' Patient is currently on BiPAP and was non-verbal during my evaluation...Neuro: Other (Opens eyes to name, but non-verbal and not interactive during my evaluation)...'
Patient care note 12/31 @ 1658, ' Patient oriented to self and place, talks in such a low volume that she is often unintelligible. Patient rambles continuously, also often paranoid of medications provided..'
Patient care note 12/31 @ 2029,' Received pt A&Ox1 to self... Pt often speaks under her breath and is very difficult to understand....'
Pulmonary progress note 01/01,' She appears to be confused, asking about Effie and stating that Effie is disrespectful. Also accusing me of harming her finger with her pulse oximeter...'
Based on the above, could you clarify in the Progress Notes and Discharge Summary which, if any of the following, is the most likely etiology of the confusion/altered mental status.
Metabolic Encephalopathy
Toxic Metabolic Encephalopathy
Other ( please specify)
Use of terms such as suspected, likely, concern for, or probable (associated with a specific diagnosis that is being evaluated, monitored, or treated as if it exists) are acceptable and can be coded in the inpatient setting, when documented at the
time of discharge.
Thank you,
Elisa Faye RN
CDI Specialist
[place] [facility]
Please use your independent medical judgment in providing your response.
--- NOTE | 2024-01-02 15:33 | W.PN.HOSP.TC ---
Addendum entered and electronically signed by Domo Raymond MD 01/02/24 17:07:
#Acute Metabolic Encephalopathy
-2/2 to sepsis
ctm
Original Note:
Today's Communication/Plan
-
abx
repeat blood cultures
hospice tomorrow
Assessment / Plan
Assessment / Plan
Physical Exam
General: Appears Chronically Ill and Cachectic
HEENT: Anicteric and Oxygen (BiPAP)
Respiratory: Decreased Breath Sounds (Poor inspiratory effort)
Cardiac: S1/S2, Regular Rhythm and Tachycardia
GI: Soft and Non Tender
Rectal: Deferred by Provider
Musculoskeletal: No Clubbing, No Cyanosis and No Edema
Skin: Warm and Dry
Acute on Chronic Hypoxic/Hypercarbic Respiratory Failure
-Consult Pulmonary
-off bipap
-Recheck ABG later today
-duonebs prn
-broad spectrum abx
-iv steroids
-bipap naps/night
Septic Shock, likely pulmonary source
#Bacrteremia
-Continue broad spectrum antibiotics with vancomycin and Zosyn
-Off levo this afternoon
-f/u cultures
-maintain map >65
-F/u repeat blood cultures
End Stage COPD
-Continue Decadron
-Continue Pulmicort Neb
-Continue Duoneb QID and PRN
-palliative consult
Bipolar Disorder with Psychotic Features
-Continue Depakote
#Hypernatremia
-monitor with resuscitation
#
Dysphagia
-Per [place] paperwork patient on Advanced Solids
-Pureed
Pulmonary Cachexia / Severe Protein Calorie Malnutrition
Hx Left Breast Cancer s/p Lumpectomy
DVT proph: Lovenox
Code Status: DNR; hospice appropriate - cm consulted; plan for Hospice tomorrow
Total time spent on today's encounter was 52 minutes which included time spent in counseling the patient/family regarding diagnosis and treatment plan as listed above, goals of care, and symptom management. Case was discussed with nursing staff,
specialists, and care coordinators/case management. All labs and imaging personally reviewed by me. Remainder the time spent in detailed review of previous records, lab data, imaging, and other medical provider documentation.
Anticipated Discharge: Within 24 hours
Subjective/Interval History
-
Date of Service: January 02, 2024
refusing repeat blood cultures; pos blood cultures today
Objective Data
-
Labs:
Laboratory Results
01/02/24
04:50
WBC 24.8 H
Hgb 11.7 L
Hct 37.2
Plt Count 320 D
Sodium 146 H
Potassium 3.6
Chloride 104
Carbon Dioxide 33 H
BUN 11
Creatinine 0.6
Glucose 109 H
Calcium 10.5 H
Total Bilirubin 0.5
AST 67 H
ALT 14
Alkaline Phosphatase 77
Vital Signs:
Vital Signs
Temp Pulse Resp BP Pulse Ox
97.7 F 84 25 87/64 93
01/02/24 11:45 01/02/24 14:15 01/02/24 14:15 01/02/24 14:00 01/02/24 12:45
I&O
01/01/24 01/02/24 01/03/24
06:59 06:59 06:59
Intake Total 550 / 550 120 / 120
Output Total 650 / 650
Balance 550 / 250 -650 / -650 120 / 120
Review of Systems
-
History Source: Patient
All other systems: Not reviewed unless documented
Data Reviewed
-
Diagnostic Radiology: Image personally visualized and interpreted and Report Reviewed by me
Labs: Labs Reviewed by me
[2024-01-02] MEDS: NSS 1000 IV (16:32)
--- NOTE | 2024-01-02 16:37 | PTCARENOTE ---
Pt weaned down to 3L nasal cannula. Still refusing blood draws at this time.
--- NOTE | 2024-01-02 19:30 | PTCARENOTE ---
report received. aaox3 but flat garbled speech. pt verbally aggressive at times. vss. map>65. nss@50cc/hr. refused medications. large bm. pure wic in placed. bed alarm placed. will monitor.
[2024-01-02] MEDS: DECADRON 4 MG IV (19:31)
[2024-01-02] MEDS: DEPAKENE PO (21:41)
[2024-01-03] VITALS (7 sets, daily range): BP systolic 69–105; BP diastolic 55–66; BMI 14.3
[2024-01-03] MEDS: PULMICORT 0.5 MG INH (00:17)
[2024-01-03] MEDS: ZOSYN 50 IV ×2 (00:17→06:19)
[2024-01-03] MEDS: DUONEB 3 ML INH (00:17)
--- NOTE | 2024-01-03 00:55 | PTCARENOTE ---
c/o generalized pain and dyspnea. hoop driving machine operator notified. 1mg morphine ordered and admin.
[2024-01-03] MEDS: MORPHINE SULFATE 1 MG IV (00:56)
--- NOTE | 2024-01-03 02:56 | DOWNTIME ---
There was a [employer] Client Deputy Chief Magistrate Downtime on 01/03/2024 from 0100 to 01/03/2024 at 0255. Downtime documentation of patient's care, including medication administrations, has been reconciled in the electronic record per guidelines. Refer to the
patient's paper chart under the miscellaneous tab to see printed paper medication records and downtime forms.
[2024-01-03 04:21] LABS: Hematocrit 38.4 % (37.0-47.0); Hemoglobin 11.6 g/dL (12.0-16.0); Mean Corp Hgb Conc. 30.2 g/dL (33.0-37.0); Mean Corpuscular Hgb 28.9 pg (27.0-31.0); Mean Corpuscular Volume 95.5 fL (81.0-99.0); Mean Platelet Volume 9.9 fL (7.4-10.4); Platelet Count 334 10^3/uL (130-400); Red Blood Cell Count 4.02 10^6/uL (4.20-5.40); Red Cell Dist. Width 13.4 % (11.5-14.5); White Blood Cell Count 28.2 10^3/uL (4.8-10.8)
[2024-01-03 04:28] LABS: ALT (SGPT) 14 U/L (0-35); AST (SGOT) 52 U/L (14-36); Albumin 3.6 g/dl (3.5-5.0); Alkaline Phosphatase 67 U/L (38-126); Blood Urea Nitrogen 10 mg/dl (7-17); Calcium 10.3 mg/dl (8.4-10.2); Carbon Dioxide 32 mmol/L (22-30); Chloride 105 mmol/L (98-107); Estimated Creatinine Clearance 37 ml/min; Glucose 106 mg/dl (70-99); Potassium 4.1 mmol/L (3.5-5.1); Sodium 147 mmol/L (135-145); Total Bilirubin 0.4 mg/dl (0.2-1.3); Total Protein 6.1 g/dl (6.3-8.2); eGFR > 60.00
[2024-01-03 04:32] LABS: Vancomycin Random 15.1 ug/ml
[2024-01-03] MEDS: DUONEB INH ×2 (07:23→10:59)
[2024-01-03] MEDS: PULMICORT INH (07:23)
[2024-01-03] MEDS: DECADRON 4 MG IV (07:53)
[2024-01-03] MEDS: DEPAKENE PO (07:53)
--- NOTE | 2024-01-03 08:29 | PTCARENOTE ---
Py is awake yelling obscenities, garbled slurred speech. Pt not making sense. Attempts to hit this nurse with her call lanier . Refused to take meds. Attempted to help her with her meal and she pushed tray back at me. Pt is for dc back to [facility] on
hospice.
--- NOTE | 2024-01-03 08:54 | CM ---
Patient from [facility] with Hx Bipolar Disorder with Psychotic Features with Dx Dx Acute on Chronic Hypoxic/Hypercarbic Respiratory Failure, Septic Shock, end stage COPD. O2 3L. Agitated this morning per nursing.
Spoke with [facility]; they are able to accept the patient back today with Hospice. The ph for report [phone], .
As per prior CM notes, patient's brother Noah Herrera agrees with d/c plan today.
[facility] DNR form on chart.
Plan return to [facility] today with Hospice by ambulance- noon transport.
--- NOTE | 2024-01-03 11:08 | PTCARENOTE ---
Report to [facility] [facility]
--- NOTE | 2024-01-03 11:14 | W.PN.HOSP.TC ---
Addendum entered and electronically signed by Domo Raymond MD 01/04/24 15:17:
[id number]
Original Note:
Today's Communication/Plan
-
Augmentin to complete 5 more days
Hospice
Assessment / Plan
Assessment / Plan
Physical Exam
General: Appears Chronically Ill and Cachectic
HEENT: Anicteric and Oxygen
Respiratory: Decreased Breath Sounds (Poor inspiratory effort)
Cardiac: S1/S2, Regular Rhythm and Tachycardia
GI: Soft and Non Tender
Rectal: Deferred by Provider
Musculoskeletal: No Clubbing, No Cyanosis and No Edema
Skin: Warm and Dry
Acute on Chronic Hypoxic/Hypercarbic Respiratory Failure
-Consult Pulmonary
-off bipap
-Duonebs
-can go back on prednisone
-can complete augmentin - 5 more days
-broad spectrum abx
-bipap naps/night
Septic Shock, likely pulmonary source
-blood cultures appear to be contaminant
-Augmentin x 5 days - complete course
-Off norepi
-maintain map >65
-F/u repeat blood cultures
End Stage COPD
-go back on steroids
-Continue Pulmicort Neb
-Continue Duoneb QID and PRN
-palliative consult
Bipolar Disorder with Psychotic Features
-Continue Depakote
#Hypernatremia
-monitor with resuscitation
#
Dysphagia
-Per [place] paperwork patient on Advanced Solids
-Pureed
Pulmonary Cachexia / Severe Protein Calorie Malnutrition
Hx Left Breast Cancer s/p Lumpectomy
DVT proph: Lovenox
Code Status: DNR; hospice appropriate - cm consulted; plan for Hospice today
More than 30 minutes spent in discharge including
Final examination of the patient
Summarizing hospital stay
Instructions for continuing care to all relevant caregivers
Preparation of discharge records, prescriptions, and referral forms
Total time spent (35 in minutes):
Anticipated Discharge: Today
Subjective/Interval History
-
Date of Service: January 03, 2024
no acute events
Objective Data
-
Labs:
Laboratory Results
01/03/24
03:40
WBC 28.2 H
Hgb 11.6 L
Hct 38.4
Plt Count 334
Sodium 147 H
Potassium 4.1
Chloride 105
Carbon Dioxide 32 H
BUN 10
Creatinine 0.7
Glucose 106 H
Calcium 10.3 H
Total Bilirubin 0.4
AST 52 H
ALT 14
Alkaline Phosphatase 67
Vital Signs:
Vital Signs
Temp Pulse Resp BP Pulse Ox
97.9 F 88 31 89/60 97
01/03/24 07:45 01/03/24 05:15 01/03/24 05:15 01/03/24 04:00 01/03/24 08:46
I&O
01/02/24 01/03/24 01/04/24
06:59 06:59 06:59
Intake Total 120 / 120
Output Total 650 / 650 250 / 250
Balance -650 / -650 -130 / -130
Review of Systems
-
History Source: Patient
All other systems: Not reviewed unless documented
Physical Exam
-
General: Comfortable and Cachectic
HEENT: Normocephalic, Atraumatic and Moist Mucous Membranes
Respiratory: Rales
Cardiac: Regular Rhythm and S1/S2; Negative Murmur, Rub or Gallop
GI: Soft, Nontender, Nondistended and Normal Bowel Sounds; Negative Organomegaly
Rectal: Deferred by Provider
Musculoskeletal: No Clubbing, No Cyanosis and No Edema
Skin: Negative Rash
Neuro: Awake and Nonfocal/Grossly Intact; Negative Oriented (Not fully oriented)
Psych: Confused
Data Reviewed
-
Diagnostic Radiology: Image personally visualized and interpreted and Report Reviewed by me
Labs: Labs Reviewed by me
--- NOTE | 2024-01-03 11:25 | W.DS.TRANS ---
DC Summary - Motor Vehicle Field Representative
-
Discharge Instructions:
Discharge Diagnosis/Procedures
Acute on Chronic Hypoxic/Hypercarbic Respiratory
Failure
Sepsis
Diet Other diet
Additional Diets as tolerated
Activity As tolerated
Instructions:
Stand-Alone Forms:
Changes to Home Medications: Yes
Discharge Medications:
DC Medications w/original date entered in [facility]
tiotropium bromide 18 mcg capsule with inhalation device (Spiriva with HandiHaler) 1 cap inhalation R DAILY Lung/Breathing Issues 04/28/23
prednisone 5 mg tablet 5 mg PO DAILY COPD 06/13/23
albuterol 90 mcg-budesonide 80 mcg/actuation HFA aerosol inhaler 2 inh inhalation Q4HPRN PRN shortness of breath 12/31/23
valproic acid (as sodium salt) 250 mg/5 mL (5 mL) oral solution 250 mg PO TID Mental Health/Anxiety 12/31/23
amoxicillin 875 mg-potassium clavulanate 125 mg tablet 1 tab PO BID 5 days #10 tabs 01/03/24
Home Medication Changes
amoxicillin 875 mg-potassium clavulanate 125 mg tablet 1 tab PO BID 5 days #10 tabs 01/03/24
Pending Results: No
== END 2024-01-03 12:40 | DRG 871 ==
LOC: IMU 23:47
PROVIDERS: Nurse Practitioner Family; Physician Assistant Medical; Student in an Organized Health Care Education/Training Program; ADMITTING PHYSICIAN Internal Medicine; ATTENDING PHYSICIAN Internal Medicine; EMERGENCY PHYSICIAN Emergency Medicine; FAMILY PHYSICIAN Internal Medicine; OTHER PHYSICIAN Internal Medicine Critical Care Medicine
DX: A41.9 Sepsis, unspecified organism (principal); E43 Unspecified severe protein-calorie malnutrition; J96.21 Acute and chronic respiratory failure with hypoxia; J96.22 Acute and chronic respiratory failure with hypercapnia; R65.21 Severe sepsis with septic shock; G93.41 Metabolic encephalopathy; J44.1 Chronic obstructive pulmonary disease with (acute) exacerbation; J44.0 Chronic obstructive pulmonary disease with (acute) lower respiratory infection; R64 Cachexia; Z68.1 Body mass index [BMI] 19.9 or less, adult; E87.0 Hyperosmolality and hypernatremia; I95.9 Hypotension, unspecified; J20.9 Acute bronchitis, unspecified; Z87.891 Personal history of nicotine dependence
CPT/HCPCS: 36600; 51701; 71045; 80048; 80053; 80202; 81003; 81015; 82805; 83605; 83735; 85025; 85027; 87040; 87070; 87150; 87205; 87502; 87811; 92610; 93005; 94640; 94660; 96361; 96374; 99291